=== PATIENT | male | born 1950 | race Caucasian/White ===

== ENCOUNTER → 2018-12-05 09:54 | Outpatient (CLI) | payer MEDICARE, MEDICAID | END | disposition home or self-care (01) | LOC: D.HCCARDIO 09:54 | DX: R07.9 Chest pain, unspecified (principal) ==

== ENCOUNTER → 2018-12-18 11:25 | Outpatient (CLI) | payer MEDICARE, MEDICAID ==
[~2018-12-18] VITALS: Ht 172.7 cm; Wt 62.7 kg
--- NOTE | ~2018-12-18 | HEMODYNAMI ---
PATIENT:ONDINA EWING MEDICAL RECORD: [id number] : 46 LOCATION:[facility] ADMISSION DATE: 12/18/18 Generatedon:12/18/201814:39 Patient name: ONDINA EWING Patient #: [id number] SSN: : 1950 Date of study: 12/18/2018 Page: Of Hemodynamic Procedure Report Patient Data Patient Demographics Procedure consent was obtained First Name: ONDINA Gender: Male Last Name: KAYLIN : 1950 Patient #: [id number] Age: 68 year(s) Race: Unknown Additional ID: [id number] Contact details [address]: [address] [place] [address] State: [place] City: [place] Zip code: [address] Past Medical History Allergies Allergen Reaction Date Comments Reported Sulfa drugs 12/18/2018 Admission Admission Data Admission Date: 12/18/2018 Admission Time: 11:25 Height (in.): 67 BSA: 1.78 (m2) Height (cm.): 170.18 BMI: 23.18 (kg/m2) Weight (lbs.): 148 Weight (kg.): 67.13 Lab Results Lab Result Date: 12/18/2018 Lab Result Time: 0:00 Biochemistry Name Units Result Min Max BUN mg/dl 22 --(----)-* 7 18 Creatinine mg/dl 1.9 --(----)-* 0.6 1.3 CBC Name Units Result Min Max Hemoglobin g/dl 14.8 --(-*--)-- 13.5 17.5 Procedure Procedure Types Cath Procedure Diagnostic Procedure LHC LH w/Coronaries Sedation Charges Moderate Sedation up to 15 minutes PCI Procedure Coronary Stent Coronary Stent Initial Procedure Description Procedure Date Procedure Date: 12/18/2018 Procedure Start Time: 14:19 Procedure End Time: 14:36 Procedure Staff Name Function Alex Leavitt MD Performing Physician Renea Rosenberg RT Monitor Dorothy Lorenzo RN Nurse Pina Gonzalez RT Scrub Procedure Data Cath Procedure Fluoroscopy Diagnostic fluoroscopy Total fluoroscopy Time: 3.4 time: 3.4 min min Diagnostic fluoroscopy Total fluoroscopy dose: 391 dose: 391 mGy mGy Contrast Material Contrast Material Type Amount (ml) Isovue 300 77 Entry Location Entry Primary Successful Side Size Upsize Upsize Entry Closure Mcclain ccessful Closure Location (Fr) 1 (Fr) 2 (Fr) Remarks Device Remarks Radial Right 6 Fr Mechanical artery Short Compression Estimated blood loss: 12 ml Diagnostic catheters Device Type Used For End Catheter Placement DIAGNOSTIC Freeport 110cm 5 Procedure Fr catheter ([id number]) Procedure Complications No complications Procedure Medications Medication Administration Route Dosage 0.9% NaCl I.V. 100 ml/hr Oxygen etCO2 Nasal cannula 2 l/min Lidocaine 2% added to field 20 Heparin Flush Bag added to field 2 bags (1000units/500ml NS) Radial Cocktail added to field 1 syringe (Verapomil 2mg/Nitro 400mcg/Heparin 1500units) Versed I.V. 2 mg Fentanyl I.V. 50 mcg Versed I.V. 1 mg Fentanyl I.V. 25 mcg Heparin Bolus I.V. 5000 units Integrilin (Bolus I.V. 5.6 ml 2mg/ml) Plavix P.O. 600 mg Hemodynamics Rest BSA: 1.78 (m2) HGB: 14.8 (g/dl) O2 Consumption: Estimated: 208.54 (ml/min) O2 Co nsumption indexed: Estimated:117.16 (ml/min/m) Heart Rate: 74 (bpm) Pressure Samples Time Site Value (mmHg) Purpose Heart Use Rate(bpm) 14:22 LV 100/9,13 EDP 73 Gradients Valve Time Site Site Mean SEP/DFP Peak To Heart Use 1 2 (mmHg) (sec/min) Peak Rate (mmHg) (bpm) Aortic 14:22 LV AO 87 Snapshots Pre Cath Intra NCS Post Cath Vital Signs Time Heart Resp SPO2 etCO2 NIBP (mmHg) Rhythm Pain Sedation Rate (ipm) (%) (mmHg) Status Level (bpm) 14:06:40 92 12 98 33.9 142/82(123) NSR 0 (11) 10(A) , No pain 14:10:56 86 12 99 30.1 128/77(108) NSR 0 (11) 10(A) , No pain 14:15:06 72 10 98 28.6 128/78(98) NSR 0 (11) 10(A) , No pain 14:19:17 75 13 97 29.3 125/74(109) NSR 0 (11) 10(A) , No pain 14:23:31 78 11 98 31.6 106/63(82) NSR 0 (11) 9(A) , No pain 14:27:35 82 10 97 32.4 117/71(96) NSR 0 (11) 9(A) , No pain 14:31:41 78 17 98 33.1 118/76(97) NSR 0 (11) 10(A) , No pain 14:35:51 76 12 93 32.4 121/69(92) NSR 0 (11) 10(A) , No pain Medications Time Medication Route Dose Verified Delivered Reason Not es Effectiveness by by 14:06:09 0.9% NaCl I.V. 100 Alex Dorothy used for ml/hr Norton Bj procedure MD RODRIGUEZ 14:06:16 Oxygen etCO2 2 l/min Alex Dorothy used for Nasal [facility] procedure cannula MD RODRIGUEZ 14:06:20 Lidocaine 2% added 20ml Alex Alex for local to vial Count Includes [facility] anesthetic field MD TOLENTINO 14:06:26 Heparin Flush added 2 bags Alex Victorory used for Bag to Count Includes [facility] procedure (1000units/500ml field MD TOLENTINO NS) 14:06:36 Radial Cocktail added 1 Alex Alex used for (Verapomil to syringe Count Includes [facility] procedure 2mg/Nitro field MD TOLENTINO 400mcg/Heparin 1500units) 14:17:35 Versed I.V. 2 mg Alex Dorothy for sedation St Alexis Lorenzo MD, RN 14:17:45 Fentanyl I.V. 50 mcg Alex Dorothy for sedation St Alexis Lorenzo MD, RN 14:22:10 Versed I.V. 1 mg Alex Dorothy for sedation St Alexis Lorenzo MD, RN 14:22:15 Fentanyl I.V. 25 mcg Alex Dorothy for sedation St Alexis Lorenzo MD, RN 14:26:40 Heparin Bolus I.V. 5000 Alex Dorothy for [place] ified units [facility] anticoagulation with Dr. MD RODRIGUEZ [place] 14:28:56 Integrilin I.V. 5.6 ml Alex Dorothy for was dhruv (Bolus 2mg/ml) St Alexis Lorenzo anticoagulation 4.4mL MD RODRIGUEZ 14:29:28 Plavix P.O. 600 mg Alex Norman antiplatelet RN therapy Procedure Log Time Note 13:46:36 Time tracking: Regular hours (M-F 7:00 - 5:00) 13:46:40 Plan of Care:Hemodynamics will remain stable., Cardiac rhythm will remain stable., Comfort level will be maintained., Respiratory function will remain adequate., Patient/ family verbilizes understanding of procedure., Procedure tolerated without complication., Recovers from procedure without complications.. 13:49:46 Dorothy Lorenzo RN sent for patient. Start room use. 13:50:58 Signed procedure consent form obtained from patient. 13:51:00 Diagnostic Cath status Elective 13:52:09 Patient Height : 67 inches 13:52:11 Patient Weight : 148 lbs 13:52:24 Patient allergic to Sulfa drugs 14:05:32 Patient received from Pre/Post Procedure Room to CCL 1 Alert and oriented. Tansferred to table in Supine position. 14:05:33 Warm blankets applied, and rolly hugger turned on for patient comfort. 14:05:33 Correct patient and procedure confirmed by team. 14:05:34 ECG and BP/O2 sat monitors applied to patient. 14:05:36 Vital chart was started 14:05:36 Full Disclosure recording started 14:06:09 0.9% NaCl 100 ml/hr I.V. was administered by Dorothy Lorenzo RN; used for procedure; 14:06:16 Oxygen 2 l/min etCO2 Nasal cannula was administered by Dorothy Lorenzo RN; used for procedure; 14:06:20 Lidocaine 2% 20ml vial added to field was administered by Alex Leavitt MD; for local anesthetic; 14:06:26 Heparin Flush Bag (1000units/500ml NS) 2 bags added to field was administered by Alex Leavitt MD; used for procedure; 14:06:36 Radial Cocktail (Verapomil 2mg/Nitro 400mcg/Heparin 1500units) 1 syringe added to field was administered by Alex Leavitt MD; used for procedure; 14:11:56 Baseline sample Acquired. 14:11:59 Rhythm: sinus rhythm 14:13:25 H&P Date Dictated: 11/30/2018 Within 30 days and on chart., H&P Addendum completed by physician on day of procedure. (MUST COMPLETE FOR ALL OUTPATIENTS). 14:13:26 Pre-procedure instructions explained to patient. 14:13:26 Pre-op teaching completed and patient verbalized understanding. 14:13:28 Family in patients room. 14:13:29 Patient NPO since Midnight. 14:13:31 Is patient on blood thinner?No 14:13:32 Patient diabetic? No. 14:13:36 Previous problem with sedation/anesthesia? No ? 14:13:37 Snore? No 14:13:38 Sleep apnea? No 14:13:39 Deviated septum? No 14:13:40 Opens mouth fully? Yes 14:13:41 Sticks out tongue? Yes 14:13:55 Airway obstruction? No ? 14:13:57 Dentures? No ? 14:14:01 Modified Santana's test Ulnar < 7 seconds 14:14:04 Patient pain scale 0/10 ?. 14:14:17 IV patent on arrival in left hand with 0.9% NaCl at [facility]. 14:14:59 Lab Result : BUN 22 mg/dl 14:14:59 Lab Result : Hemoglobin 14.8 g/dl 14:14:59 Lab Result : Creatinine 1.9 mg/dl 14:15:01 Lab results completed and on chart. 14:15:06 Right Radial & Right Groin area was prepped with chlora-prep and draped in sterile fashion 14:15:06 Alarms reviewed by R. N. 14:15:07 Sharps counted by scrub and verified by R.N. 14:15:09 Use device set Radial Dx or PCI 14:15:10 ACIST Syringe (01204) opened to sterile field. 14:15:11 Bag Decanter () opened to sterile field. 14:15:12 ACIST Hand Control (69577) opened to sterile field. 14:15:12 ACIST Manifold (20830) opened to sterile field. 14:15:13 Tegaderm 4 x 4 (1626W) opened to sterile field. 14:15:24 Medline Cath Pack ([id number]) opened to sterile field. 14:15:24 DIAGNOSTIC WIRE .035 260cm J wire (270707) opened to sterile field. 14:15:25 MBrace Wrist Support ([id number]) opened to sterile field. 14:15:26 SHEATH 6FR Slender (29-4840) opened to sterile field. 14:16:56 --------ALL STOP TIME OUT------ 14:16:57 Final Timeout: patient, procedure, and site verified with staff and physician. All members of the team are in agreement. 14:16:59 Right Radial & Right Groin site verified by team. 14:17:01 Physical assessment completed. ASA score P 2 - A patient with mild systemic disease as per Alex Leavitt MD. 14:17:06 Sedation plan: IV Moderate Sedation Medication:Versed, Fentanyl 14:17:35 Versed 2 mg I.V. was administered by Dorothy Lorenzo RN; for sedation; 14:17:45 Fentanyl 50 mcg I.V. was administered by Dorothy Lorenzo RN; for sedation; 14:19:08 Zero performed for pressure channel P1 14:19:38 Procedure started. 14:19:59 Local anesthetic to right radial artery with Lidocaine 2% by Alex Leavitt MD.INITIAL ACCESS ONLY 14:20:38 A 6 Fr Short sheath was inserted into the Right Radial artery 14:20:51 A DIAGNOSTIC [place] 110cm 5 Fr catheter (268778) was advanced over the wire and used for Procedure. 14:21:32 LV gram done using OROSCO 14:21:36 Injector settings: Ml/sec: 7, Volume: 15, 14:22:10 Versed 1 mg I.V. was administered by Dorothy Lorenzo RN; for sedation; 14:22:15 Fentanyl 25 mcg I.V. was administered by Dorothy Lorenzo RN; for sedation; 14:22:23 LV hemodynamics recorded. 14:22:39 EF : 55 % 14:23:47 LCA angiography performed. 14:25:27 RCA angiography performed. 14:25:29 Catheter exchanged over wire. 14:25:58 INFLATOR Merit BasixCompak (VU9263) opened to sterile field. 14:25:58 WHISPER 300cm guide wire ([id number]) opened to sterile field. 14:25:59 GUIDE 5FR EBU 3.5 catheter ([id number]) opened to sterile field. 14:26:30 6 Fr EBU 3.5 guide catheter was inserted over the wire 14::40 Heparin Bolus 5000 units I.V. was administered by Dorothy Lorenzo RN; for anticoagulation; verified with Dr. Lisa 14:28:30 WHISPER 300 wire advanced. 14:28:56 Integrilin (Bolus 2mg/ml) 5.6 ml I.V. was administered by Dorothy Lorenzo RN; for anticoagulation; wasted 4.4mL 14:29:28 Plavix 600 mg P.O. was administered by Dorothy Lorenzo RN; for antiplatelet therapy; 14:30:22 Wire advanced across lesion. 14:30:45 Place stent Inflation Number: 1 A LUISA OTW 3.5 x 18 stent ([id number]) was prepped and advanced across the Prox LAD. The stent was deployed at 14 [place] for 0:20 (min:sec). 14:31:28 Stent catheter was removed intact over wire. 14:31:29 Wire removed. 14:31:30 Guide catheter removed. 14:32:16 Procedure ended.(Physican Out) 14:32:37 TR BAND Standard ([id number]) opened to sterile field. 14:32:47 Sheath removed intact; hemostasis achieved with Mechanical Compression to the Right Radial artery. 14:33:00 Contrast amount:Isovue 300 77ml. 14:33:04 Fluoroscopy time 03.40 minutes. 14:33:15 Flurop Dose total: 391 14:33:15 Fluoroscopy dose: 391 mGy 14:33:27 TR band inflated with 10cc of air. 14:33:32 Post-procedure physical assessment completed. ASA score P 2 - A patient with mild systemic disease as per Alex Leavitt MD. 14:33:35 Post procedure rhythm: sinus rhythm 14:33:38 Estimated blood loss: 12 ml 14:33:39 Post procedure instruction explained to patient.Patient verbalizes understanding. 14:33:39 Patient needs reinforcement of post procedure teaching. 14:34:16 Procedure type changed to Cath procedure, Diagnostic procedure, LHC, LHC w/Coronaries, Sedation Charges, Moderate Sedation up to 15 minutes, PCI procedure, Coronary Stent, Coronary Stent Initial 14:36:07 Procedure and supply charges have been captured, reviewed, submitted and are correct. 14:36:26 Procedure Complication : No complications 14:36:28 Vital chart was stopped 14:36:30 See physician's report for complete and final results. 14:36:31 Report given to Pre/Post Procedure Room. 14:36:34 Patient transfered to Pre/Post Procedure Room with Bed. 14:36:36 Procedure ended. 14:36:36 Full Disclosure recording stopped 14:36:40 End room use (Document Last) Intervention Summary Intervention Notes Time ActionType Lesion and Equipment Action# Pressure Duration Attributes Used 14:30:45 Place stent Prox LAD LUISA OTW 3.5 1 14 00:20 x 18 stent ([id number]) Device Usage Item Name Manufacture Quantity Catalog Hospital Part Current Mini mal Lot# / Number Charge Number Stock Stock Serial# Code ACIST Syringe Acist 1 25097 051242 076613 219759 20 (69873) Medical Systems Inc Bag Decanter Microtek 1 2001S 996088 52803 949838 5 (2001S) Medical Inc. ACIST Hand Acist 1 84268 022924 718362 707945 5 Control Medical (88029) Systems Inc ACIST Acist 1 34526 677381 458033 257517 5 Manifold Medical (04911) Systems Inc Tegaderm 4 x 3M 1 1626W 590658 198115 372713 5 4 (1626W) Medline Cath Medline 1 [id number] 560364 23134 823812 5 Pack ([id number]) DIAGNOSTIC St Jax 1 384687 830661 820290 279107 30 WIRE .035 260cm J wire (023330) MBrace Wrist Advanced 1 140-0250-00 014505 09466 691609 5 Support Vascular (989843913) Dynamics SHEATH 6FR Terumo 1 [id number] 784864 995052 093987 5 Slender (80-1060) DIAGNOSTIC Terumo 1 40-5823 253195 354195 132730 5 Freeport 110cm 5 Fr catheter (748820) INFLATOR [employer] 1 CM2310 865981 426421 775118 15 [facility] Medical BasixCompak (LG7830) WHISPER 300cm Aguilera 1 [id number] 171597 550768 676518 5 guide wire Vascular ([id number]) GUIDE 5FR EBU Medtronic 1 [id number] 297171 342532 016311 1 3.5 catheter (CR6WNW92) LUISA OTW 3.5 Medtronic 1 [id number] 727382 2090888 155734 5 [id number] x 18 stent ([id number]) TR BAND Terumo 1 [id number] 332603 604375 984495 40 Standard ([id number]) Signature Audit [place] Stage Time Signature Unsigned Intra-Procedure 12/18/2018 Renea Rosenberg 2:39:48 PM RT(R) Signatures Monitor : Renea Rosenberg Signature : RT Date : Time : [place] [id number] [place] [address]
[~2018-12-18 11:25] MED LIST: BAYER CHEWABLE81 MG PO; GEMFIBROZIL600 MG PO; ISENTRESS400 MG PO; NORVASC10 MG PO; NORVIR100 MG PO; PLAVIX75 MG PO; PREZISTA600 MG PO; TRUVADA 200 MG1 EACH PO; ZOVIRAX400 MG PO
[2018-12-18 12:19] VITALS: BP 157/85; Ht 172.7 cm; Wt 62.7 kg
[2018-12-18 12:20] LABS: BASOPHILS 1.3 % (0-2); EOSINOPHILS 5.9 % (0-7); HEMATOCRIT 41.8 % (42.0-54.0); HEMOGLOBIN 14.8 g/dL (13.5-17.5); IMMATURE GRANULOCYTES 0.3 % (0-5); LYMPHOCYTES 39.4 % (15-50); MCH 34.3 pg (26.0-34.0); MCHC 35.4 g/dL (31.0-37.0); MEAN PLATELET VOLUME 9.6 fL (7.4-10.4); MONOCYTES 10.8 % (2-11); NEUTROPHILS 42.3 % (40-80); PLATELET COUNT 206 10x3/uL (130-400); RBC 4.31 10x6/uL (4.20-6.10); RDW 11.9 % (11.5-14.5); WBC 7.9 10x3/uL (4.8-10.8)
[2018-12-18 12:40] LABS: ANION GAP 15.9 mmol/L (8-16); CALCIUM 9.1 mg/dL (8.5-10.1); CARBON DIOXIDE 23.3 mmol/L (21.0-32.0); CREATININE - SERUM 1.9 mg/dL (0.6-1.3); POTASSIUM - SERUM 3.2 mmol/L (3.5-5.1)
--- NOTE | 2018-12-18 14:45 | NUR ---
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 PATIENT CONNECTED TO MONITOR FOR OBSERVATION WITH HR 78 CHEST PAIN DENIED BP 115/65 NO DISTRESS
--- NOTE | 2018-12-18 15:04 | NUR ---
VSS WITH NO DISTRESS NOTED. TR BAND REMAINS CDI WITH NO BLEEDING OR HEMATOMA NOTED.
--- NOTE | 2018-12-18 15:24 | NUR ---
PATIENT RESTING QUIETLY WITH NO DISTRESS TR BAND TO R/WRIST IS INTACT AND CDI NO BLEEDING NOTED.
--- NOTE | 2018-12-18 15:44 | NUR ---
TR BAND TO R/WRIST IS CDI WITH CHEST PAIN DENIED. CALL LIGHT IS IN REACH NO DISTRESS NOTED
--- NOTE | 2018-12-18 15:54 | NUR ---
REPOSITIONED TO SITTING WITH HOB UP 30 DEGREES FOR COMFORT. SANDWICH AND SODA TO BEDSIDE. PATIENT DENIED CHEST PAIN
--- NOTE | 2018-12-18 16:04 | NUR ---
PATIENT VOIDS TO COLLECTION
--- NOTE | 2018-12-18 16:25 | NUR ---
PATIENT TOLERATING SANDWICH AND SODA WITH NAUSEA DENIED. TR BAND REMAINS CDI WITH NO BLEEDING OR HEMATOMA NOTED.
--- NOTE | 2018-12-18 17:04 | NUR ---
VISITING WITH FAMILY PRESENT AT BEDSIDE NEEDS DENIED
--- NOTE | 2018-12-18 17:25 | NUR ---
2 CC AIR REMOVED FROM TR BAND WITH NO BLEEDING OR HEMATOMA NOTED.
--- NOTE | 2018-12-18 17:36 | NUR ---
2 CC AIR REMOVED FROM TR BAND WITH NO BLEEDING NOTED
--- NOTE | 2018-12-18 17:59 | NUR ---
4 CC AIR REMOVED FROM TR BAND WITH NO BLEEDING OR HEMATOMA NOTED. PIV REMOVED WITH DRESSING APPLIED. PATIENT UP TO GET DRESSED FOR DISCHARGE HOME
--- NOTE | 2018-12-18 18:26 | NUR ---
VERBAL AND WRITTEN DISCHARGE GONE OVER WITH PATIENT. TR BAND REMOVED WITH DRESSING APPLIED. PATIENT LEFT VIA WC TO PARKING FOR TRANSPORT HOME CHEST PAIN DENIED NO DISTRESS
--- NOTE | 2018-12-30 12:54 | OP ---
PATIENT NAME: ONDINA EWING MEDICAL RECORD: [id number] :46 LOCATION:D.CAT ADMISSION DATE: SURGEON: PADMINI RAMOS MD DATE OF OPERATION: 12/18/2018 PROCEDURE: Left heart catheterization, selective coronary angiography, right radial approach. CATHETERS: [place] catheter and radial sheath. The procedure was well tolerated. We proceeded with PTCA and stenting of LAD. FINDINGS: Left ventriculography in 30-degree OROSCO view; normal wall motion and normal systolic function. CORONARY ANATOMY: LEFT MAIN: Left main is free of disease. 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 There is 90% in the septal auto body service mechanic itself. CIRCUMFLEX: Free of disease. RIGHT CORONARY ARTERY: Rudimentary and free of disease. PLAN: Intervention momentarily. DESCRIPTION OF PROCEDURE: Using the indwelling radial sheath, EBU 3.5 guiding catheter provided good guide catheter support followed by 300-cm Whisper wire was placed across the occluded LAD down this portion of the vessel. Primary stent deployed was a 3.5 x 18-mm [place] drug-eluting stent up to 14 atmospheres. Final angiography showed excellent resolution of an 80% complex stenosis in the LAD with no significant residual. Septum remained open. NANI flow was 3 throughout the procedure. Integrilin was used during the case. Plavix was loaded in the lab. Sheath was closed with TR band. TRANSINT:[id number] Voice Confirmation ID: [id number] DOCUMENT ID: [id number] PADMINI RAMOS MD at 1254 CC: [id number] DICTATION DATE: 12/18/18 1439 EQUIPMENT MONITOR PHOTOTYPESETTING: 12/18/18 1648 DEP CLI 12/18/18 [facility] [address] [place] [id number]
== END | disposition home or self-care (01) ==
LOC: D.CATH 11:25
PROVIDERS: Internal Medicine Interventional Cardiology
DX: I25.110 Atherosclerotic heart disease of native coronary artery with unstable angina pectoris (principal)
CPT/HCPCS: C9600; 93458

== ENCOUNTER → 2019-07-10 09:56 | Outpatient (CLI) | payer MEDICARE, MEDICAID ==
[2018-12-18 12:19] VITALS: BMI 21.0
--- NOTE | 2019-07-15 09:24 | EC ---
PATIENT:ONDINA EWING DATE OF SERVICE: 07/10/19 SEX: M MEDICAL RECORD: [id number] DATE OF : [birth year] [facility]GE [facility] PAT[facility]: 69 ADMISSION DATE: 07/10/19 REFERRING PHYSICIAN: INTERPRETING PHYSICIAN: PADMINI RAMOS MD ECHOCARDIOGRAM REPORT ECHO CHARGES 4 ECHO COMPLETE Date: 07/10/19 CLINICAL DIAGNOSIS: CAD/HTN ECHOCARDIOGRAPHIC MEASUREMENTS (adult normal given) AC root (d.<3.7cm) 4.0 cm LV Septum d (<1.2 cm> 1.0 cm Valve Excursion 1.8 cm LV Septum (systole) 1.2 cm Left Atria (s.<4.0cm> 2.8 cm LVPW d(<1.2cm) 1.1 cm RV (d.<2.3cm) 2.7 cm LVPW (sytole) 1.2 cm LV diastole(<5.6CM) 4.3 cm MV E-F(>70mm/sec) cm LV systole 3.1 cm LVOT Diameter 1.8 cm MV exc.(>10mm) 1.2 cm Est.ejection fraction (50-75%) % DOPPLER: LVIT cm/sec A 90.0 cm/sec E 48.0 cm/sec LA cm/sec RVSP 31 mmHg LVOT 84 cm/sec AOP1/2T m/s Asc. Ao 105 cm/sec RVOT 95 cm/sec RA cm/sec PA 95 cm/sec AV Gradient Peak 4.42 mmHg AV Mean 2.26 mmHg AV Area 2.1 cm MV Gradient Peak 4.15 mmHg MV Mean 1.41 mmHg MV Area cm COMMENTS: Clinical Education Assistant: 2 NORA SPEAR Plant Taxonomist: 3 Dr. Lisa TAPE# PACS Pericardial Effusion N DATE OF SERVICE: Adequate 2D, color flow, spectral Doppler, and M-mode. LVH is present. LV internal dimensions are normal. Wall motion is normal. EF is greater than or equal to 55%. Aortic valve sclerosis without stenosis by Doppler interrogation. Left atrium is normal at 3.8 cm. Mitral valve shows no prolapse. Trace MR. Right-sided chambers grossly normal. Trace TR. TRANSINT:[id number] Voice Confirmation ID: [id number] DOCUMENT ID: [id number] ECHOCARDIOGRAM REPORT [id number] ONDINA EWING 3RD PADMINI RAMOS MD at 0924 CC: [id number] DICTATION DATE: 07/11/19 1045 PSYCHIATRIC NURSE: 07/11/19 1236 DEP CLI 07/10/19 [facility] [address] [place] [address]
== END | disposition home or self-care (01) ==
LOC: D.HCCARDIO 09:56
PROVIDERS: ATTEND Internal Medicine Interventional Cardiology
DX: I25.10 Atherosclerotic heart disease of native coronary artery without angina pectoris (principal)

== ENCOUNTER 2020-01-27 10:40 | Observation (INO) | payer MEDICARE ==
[~2020-01-27] VITALS: Ht 172.7 cm; Wt 67.0 kg
--- NOTE | ~2020-01-27 | HEMODYNAMI ---
PATIENT:ONDINA EWING 3RD MEDICAL RECORD: [id number] : 46 LOCATION:[address]# [id number] ADMISSION DATE: 01/27/20 Generatedon:01/28/202015:22 Patient name: ONDINA EWING Patient #: [id number] SSN: [id number] : 1950 Date of study: 01/28/2020 Page: Of Hemodynamic Procedure Report Patient Data Patient Demographics Procedure consent was obtained First Name: ONDINA Gender: Male Last Name: KAYLIN Suffix: III Middle Initial: Renetta WILKES : 1950 Patient #: [id number] Age: 69 year(s) Race: Unknown SSN: [id number] Additional ID: [id number] Contact details [address]: [address] [place] [address] State: [place] City: [place] Zip code: [address] Past Medical History History of disease Date Diagnosis Comments CAD Allergies Allergen Reaction Date Comments Reported Sulfa drugs 12/18/2018 Other allergy 01/21/2020 BENADRYL, SULFA Other allergy 01/28/2020 benedryl. sulfa Admission Admission Data Admission Date: 01/27/2020 Admission Time: 13:05 Arrival Date: 01/28/2020 Arrival Time: 0:00 Admit Source: Other Insurance Payor: Medicare, Room #: D.2122 Medicaid HIC #: [id number] Height (in.): 67.72 BSA: 1.79 (m2) Height (cm.): 172 BMI: 22.65 (kg/m2) Weight (lbs.): 147.71 Weight (kg.): 67 Procedure Procedure Types Cath Procedure Diagnostic Procedure LHC LHC w/Coronaries Sedation Charges Moderate Sedation up to 15 minutes Procedure Description Procedure Date Procedure Date: 01/28/2020 Procedure Start Time: 15:02 Procedure End Time: 15:20 Procedure Staff Name Function Ralph Cobian MD Performing Physician Enma Rader RT Monitor Dorothy Lorenzo RN Nurse Ирина Maya RT Scrub Indication Chest pain Procedure Data Cath Procedure Fluoroscopy Diagnostic fluoroscopy Total fluoroscopy Time: time: 2.63 min 2.63 min Diagnostic fluoroscopy Total fluoroscopy dose: 442 dose: 442 mGy mGy Contrast Material Contrast Material Type Amount (ml) Isovue 300 68 Entry Location Entry Primary Successful Side Size Upsize Upsize Entry Closure Succes sful Closure Location (Fr) 1 (Fr) 2 (Fr) Remarks Device Remarks Femoral Left 5 Fr Exoseal artery Estimated blood loss: 10 ml Diagnostic catheters Device Type Used For End Catheter Placement MULTIPACK JL 4.0 5Fr Procedure catheter MULTIPACK 3DRC 5Fr Procedure catheter MULTIPACK Pigtail 5 Fr Ventriculography catheter Procedure Complications No complications Procedure Medications Medication Administration Route Dosage 0.9% NaCl I.V. 100 ml/hr Oxygen etCO2 Nasal cannula 2 l/min Lidocaine 2% added to field 20 Heparin Flush Bag added to field 2 bags (1000units/500ml NS) Versed I.V. 2 mg Fentanyl I.V. 50 mcg Versed I.V. 2 mg Fentanyl I.V. 50 mcg Hemodynamics Rest BSA: 1.79 (m2) O2 Consumption: Estimated: 224.88 (ml/min) O2 Consumption indexed : Estimated:125.63 (ml/min/m) Heart Rate: 97 (bpm) Pressure Samples Time Site Value (mmHg) Purpose Heart Use Rate(bpm) 15:16 LV 124/-4,11 Snapshot 97 Gradients Valve Time Site Site Mean SEP/DFP Peak To Heart Use 1 2 (mmHg) (sec/min) Peak Rate (mmHg) (bpm) Aortic 15:17 LV AO 98 Snapshots Pre Cath Intra NCS Post Cath Vital Signs Time Heart Resp SPO2 etCO2 NIBP (mmHg) Rhythm Pain Sedation Rate (ipm) (%) (mmHg) Status Level (bpm) 14:45:49 91 13 97 28.9 150/91(115) NSR 0 (11) 10(A) , No pain 14:50:05 86 12 96 29.7 143/84(115) NSR 0 (11) 10(A) , No pain 14:54:21 86 11 98 26.7 139/74(87) NSR 0 (11) 10(A) , No pain 14:58:33 87 11 97 17.8 135/79(104) NSR 0 (11) 10(A) , No pain 15:02:47 83 13 96 29.7 132/72(94) NSR 0 (11) 10(A) , No pain 15:06:55 88 13 97 35.6 132/88(107) NSR 0 (11) 10(A) , No pain 15:11:02 96 13 97 25.2 139/85(117) NSR 0 (11) 9(A) , No pain 15:15:12 94 12 98 34.2 128/83(106) NSR 0 (11) 9(A) , No pain 15:19:20 93 10 98 32.6 130/79(104) NSR 0 (11) 10(A) , No pain Medications Time Medication Route Dose Verified Delivered Reason Notes Eff ectiveness by by 14:44:49 0.9% NaCl I.V. 100 Ralph Dorothy used for ml/hr Mango Lorenzo procedures rn 14:44:58 Oxygen etCO2 2 Ralph Dorothy used for Nasal l/min Mango Lorenzo procedure cannula RN 14:45:04 Lidocaine 2% added 20ml Ralph Ralph for local to vial Mango Cobian MD anesthetic field 14:45:09 Heparin Flush added 2 Ralph Ralph used for Bag to bags Mango Cobian MD procedure (1000units/500ml field NS) 15:02:20 Versed I.V. 2 mg Ralph Dorothy for Mango Lorenzo sedation RN 15:02:25 Fentanyl I.V. 50 Ralph Dorothy for mcg Mango Lorenzo sedation RN 15:07:29 Versed I.V. 2 mg Ralph Dorothy for Mango Lorenzo sedation RN 15:07:38 Fentanyl I.V. 50 Ralph Dorothy for mcg Mango Lorenzo sedation improvement specialist Log Time Note 14:27:20 Arrival Date: 01/28/2020 12:00:00 AM 14:27:44 Admit Source: Other 14:27:49 Insurance Payor : Medicare, Medicaid 14:27:57 Patient Height : 67.72 inches 14:28:00 Patient Weight : 147.71 lbs 14:28:30 Indication : Chest pain 14:28:43 Procedure Status Urgent Heart Cath (IP). 14:28:45 Dorothy Lorenzo RN sent for patient. Start room use. 14:28:46 Time tracking: Regular hours (M-F 7:00 - 5:00) 14:28:50 Plan of Care:Hemodynamics will remain stable., Cardiac rhythm will remain stable., Comfort level will be maintained., Respiratory function will remain adequate., Patient/ family verbilizes understanding of procedure., Procedure tolerated without complication., Recovers from procedure without complications.. 14:29:26 3b) 30-44 Moderately reduced kidney function. 14:29:29 Maximum allowable contrast dose (3.7 X eGFR X 0.75)111 ml. 14:39:45 Patient received from Med II to CCL 2 Alert and oriented. Tansferred to table in Supine position. 14:39:48 Signed procedure consent form obtained from patient. 14:39:49 Warm blankets applied, and rolly hugger turned on for patient comfort. 14:39:49 Correct patient and procedure confirmed by team. 14:39:50 ECG and BP/O2 sat monitors applied to patient. 14:44:06 H&P Date Dictated: 01/27/2020 Within 30 days and on chart., H&P Addendum completed by physician on day of procedure. (MUST COMPLETE FOR ALL OUTPATIENTS). 14:44:08 Pre-procedure instructions explained to patient. 14:44:10 Pre-op teaching completed and patient verbalized understanding. 14:44:12 Family in patients room. 14:44:14 Patient NPO since Midnight. 14:44:29 Patient allergic to Other allergybenedryl. sulfa 14:44:32 Is the patient allergic to Iodine/contrast media? No. 14:44:33 Was the patient premedicated? Yes 14:44:35 Is patient on blood thinner?Yes 14:44:37 Patient diabetic? No. 14:44:41 Snore? Yes 14:44:42 Vital chart was started 14:44:43 Sleep apnea? No 14:44:49 0.9% NaCl 100 ml/hr I.V. was administered by Dorothy Lorenzo RN; used for procedure; Verbal order read back and verified. 14:44:52 Patient pain scale 0/10 ?. 14:44:58 Oxygen 2 l/min etCO2 Nasal cannula was administered by Dorothy Lorenzo RN; used for procedure; Verbal order read back and verified. 14:45:01 IV patent on arrival in right hand with 0.9% NaCl at [facility]. 14:45:04 Lidocaine 2% 20ml vial added to field was administered by Ralph Cobian MD; for local anesthetic; Verbal order read back and verified. 14:45:05 Lab results completed and on chart. 14:45:09 Heparin Flush Bag (1000units/500ml NS) 2 bags added to field was administered by Ralph Cobian MD; used for procedure; Verbal order read back and verified. 14:45:10 Right groin area was prepped with chlora-prep and draped in sterile fashion 14:45:11 Alarms reviewed by R. N. 14:45:12 Sharps counted by scrub and verified by R.N. 14:45:16 Physician paged 14:46:20 Use device set Femoral Dx 14:46:21 ACIST Syringe (97964) opened to sterile field. 14:46:22 Bag Decanter (2002S) opened to sterile field. 14:46:22 Medline Cath Pack ([id number]) opened to sterile field. 14:46:23 ACIST Hand Control (19811) opened to sterile field. 14:46:24 ACIST Manifold (23286) opened to sterile field. 14:46:25 DIAGNOSTIC Multipack 5Fr catheter set ([id number]) opened to sterile field. 14:46:26 Tegaderm 4 x 4 (1626W) opened to sterile field. 14:46:27 SHEATH 5FR [place] (HUG196) opened to sterile field. 14:46:29 EMERALD Guide Wire (354-295) opened to sterile field. 15:00:03 --------ALL STOP TIME OUT------ 15:00:04 Final Timeout: patient, procedure, and site verified with staff and physician. All members of the team are in agreement. 15:00:09 Left groin site verified by team. 15:00:21 Fire Safety Assessment: A--An alcohol-based skin anteseptic being used preoperatively., C--Open oxygen or nitrous oxide is being used., D--An ESU, laser, or fiber-optic light is being used. 15:00:25 Physical assessment completed. ASA score P 2 - A patient with mild systemic disease as per Ralph Cobian MD. 15:00:28 Sedation plan: IV Moderate Sedation Medication:Versed, Fentanyl 15::29 Procedure started. :: Full Disclosure recording started 15:02:20 Versed 2 mg I.V. was administered by Dorothy Lorenzo RN; for sedation; Verbal order read back and verified. 15::23 Left groin site verified by team. 15::25 Fentanyl 50 mcg I.V. was administered by Dorothy Lorenzo RN; for sedation; Verbal order read back and verified. 15:02:35 Local anesthetic to left femerol artery with Lidocaine 2% by Ralph Cobian MD.INITIAL ACCESS ONLY 15:02:53 A 5 Fr sheath was inserted into the Left Femoral artery 15:04:53 A MULTIPACK JL 4.0 5Fr catheter was advanced over the wire and used for Procedure. 15:05:15 LCA angiography performed. 15::29 Versed 2 mg I.V. was administered by Dorothy Lorenzo RN; for sedation; Verbal order read back and verified. 15::38 Fentanyl 50 mcg I.V. was administered by Dorothy Lorenzo RN; for sedation; Verbal order read back and verified. 15:08:15 Catheter removed. 15:08:26 A MULTIPACK 3DRC 5Fr catheter was advanced over the wire and used for Procedure. 15:09:04 RCA angiography performed. 15:16:15 Catheter removed. 15:16:26 A MULTIPACK Pigtail 5 Fr catheter was advanced over the wire and used for Ventriculography. 15:16:57 EF : 55 % 15:17:11 LV hemodynamics recorded. 15:17:11 Catheter removed. 15:17:24 Sheath removed intact; hemostasis achieved with Exoseal to the Left Femoral artery. 15:17:26 Procedure ended.(Physican Out) 15:17:44 Fluoroscopy time 02.63 minutes. 15:17:54 Fluoroscopy dose: 442 mGy 15:17:54 Flurop Dose total: 442 15:18:00 Dose Area Product 30634 mGy/cm. 15:18:06 Contrast amount:Isovue 300 68ml. 15:18:12 Maximum allowable dose exceeded? No. 15:18:15 Insertion/operative site no bleeding no hematoma. 15:18:18 Post-op/insertion site Right Femoral artery dressed using a 4 x 4 and Tegaderm. 15:18:39 Post-procedure physical assessment completed. ASA score P 2 - A patient with mild systemic disease as per Ralph Cobian MD. 15:18:45 Post procedure rhythm: unchanged. 15:18:51 Estimated blood loss: 10 ml 15:18:53 Post procedure instruction explained to patient.Patient verbalizes understanding. 15:19:04 Procedure type changed to Cath procedure, Diagnostic procedure, LHC, LHC w/Coronaries, Sedation Charges, Moderate Sedation up to 15 minutes 15:19:06 Procedure and supply charges have been captured, reviewed, submitted and are correct. 15:19:37 Procedure Complication : No complications 15:19:39 Vital chart was stopped 15:19:41 [facility] Findings: mild to moderate CAD (<70%) 15:19:51 Report given to Med II. 15:19:59 Patient transfered to Med II with Bed. 15:20:01 Procedure ended. 15:20:01 Full Disclosure recording stopped 15:20:06 End room use (Document Last) 15:20:41 End room use (Document Last) 15:21:13 End room use (Document Last) Device Usage Item Name Manufacture Quantity Catalog Hospital Part Current Minimal L ot# / Number Charge Number Stock Stock Serial# Code ACIST Acist 1 00968 574952 351653 538134 20 Syringe Medical (80712) Systems Inc Bag Microtek 1 423721 63193 554334 5 Decanter Medical Inc. () Medline Medline 1 [id number] 668796 14599 729754 5 Cath Pack ([id number]) ACIST Hand Acist 1 82486 961456 623922 873045 5 Control Medical (34263) Systems Inc ACIST Acist 1 08717 455839 077806 613459 5 Manifold Medical (07422) Systems Inc DIAGNOSTIC Cardinal 1 OH2852 735812 62523 598740 30 Multipack Health 5Fr catheter set (IH8800) Tegaderm 4 3M 1 1626W 780177 023564 582092 5 x 4 (1626W) SHEATH 5FR Terumo 1 BGS996 994609 499083 211649 5 [place] (ZZF004) EMERALD Cardinal 1 502-455 603758 485991 243398 5 Guide Wire Health (502455) MULTIPACK Cardinal 1 758905 5 JL 4.0 5Fr Health catheter MULTIPACK Cardinal 1 958331 5 3DRC 5Fr Health catheter MULTIPACK Cardinal 1 000793 5 Pigtail 5 Health Fr catheter Signature Audit [place] Stage Time Signature Unsigned Intra-Procedure 01/28/2020 Enma Rader 3:20:41 PM RT(R) Intra-Procedure 01/28/2020 Ralph Cobian MD 3:21:13 PM Intra-Procedure 01/28/2020 Dorothy Lorenzo 3:21:59 PM RN Signatures Performing Physician : Signature : Ralph Cobian MD Date : Time : Monitor : Enma Rader Signature : RT Date : Time : Nurse : Dorothy Lorenzo RN Signature : Date : [address] : [address] [facility] [address]
[2020-01-27 11:14] LABS: BASOPHILS 1.5 % (0-2); EOSINOPHILS 10.9 % (0-7); HEMATOCRIT 42.4 % (42.0-54.0); HEMOGLOBIN 14.5 g/dL (13.5-17.5); IMMATURE GRANULOCYTES 0.2 % (0-5); LYMPHOCYTES 39.1 % (15-50); MCH 32.9 pg (26.0-34.0); MCHC 34.2 g/dL (31.0-37.0); MCV 96.1 fL (80.0-100.0); MEAN PLATELET VOLUME 9.4 fL (7.4-10.4); MONOCYTES 10.9 % (2-11); NEUTROPHILS 37.4 % (40-80); PLATELET COUNT 216 10x3/uL (130-400); RBC 4.41 10x6/uL (4.20-6.10); RDW 11.7 % (11.5-14.5); WBC 6.5 10x3/uL (4.8-10.8)
[2020-01-27 11:26] LABS: CALC OSMOLALITY 277 mosm/kg (275-300); CALCIUM 9.5 mg/dL (8.5-10.1); CARBON DIOXIDE 24.6 mmol/L (21.0-32.0); CHLORIDE - SERUM 102 mmol/L (98-107); CREATININE - SERUM 1.7 mg/dL (0.6-1.3); GLUCOSE 141 mg/dL (74-106); POTASSIUM - SERUM 3.8 mmol/L (3.5-5.1); SODIUM 137 mmol/L (136-145); UREA NITROGEN 19 mg/dL (7-18); eGFR NON AFRICAN AMERICAN 42 mL/min (90-120)
[2020-01-27 11:34] LABS: APTT 31.5 SECONDS (22.8-39.4); INR 0.99 (0.85-1.17)
[2020-01-27 11:40] LABS: ALBUMIN 4.1 g/dL (3.4-5.0); ALKALINE PHOSPHATASE 27 U/L (30-120); ALT (SGPT) 34 U/L (10-68); BILIRUBIN - TOTAL 0.48 mg/dL (0.2-1.3); CKMB 2.8 U/L (0.0-3.6); CREATINE KINASE 160 UL (21-232); MAGNESIUM - SERUM 2.5 mg/dL (1.8-2.4); PROTEIN - SERUM 8.5 g/dL (6.4-8.2)
[2020-01-27 11:44] LABS: TROPONIN-I 0.017 ng/mL (0.000-0.060)
[2020-01-27 12:57] VITALS: BP 121/73
[2020-01-27 13:56] LABS: CKMB 2.2 U/L (0.0-3.6); CREATINE KINASE 146 UL (21-232); TROPONIN-I 0.019 ng/mL (0.000-0.060)
[2020-01-27 14:28] VITALS: BP 136/79; Ht 172.7 cm; Wt 67.0 kg
[2020-01-27 15:55] VITALS: BP 136/79
[2020-01-27 16:36] LABS: BILIRUBIN NEGATIVE (NEGATIVE); GLUCOSE NEGATIVE (NEGATIVE); KETONE NEGATIVE (NEGATIVE); NITRITE NEGATIVE (NEGATIVE); SPECIFIC GRAVITY 1.025 (1.005-1.020); UROBILINOGEN NORMAL (NORMAL)
[2020-01-27 16:38] LABS: BACTERIA FEW /hpf (NEGATIVE); GRANULAR CAST OCC /lpf (NONE SEEN); RED CELLS - URINE 0-5 /hpf (0-5); WHITE CELLS - URINE 0-5 /hpf (NEGATIVE)
[2020-01-27 19:43] LABS: BASOPHILS 1.6 % (0-2); EOSINOPHILS 9.5 % (0-7); HEMATOCRIT 36.8 % (42.0-54.0); HEMOGLOBIN 12.6 g/dL (13.5-17.5); IMMATURE GRANULOCYTES 0.2 % (0-5); MCH 32.7 pg (26.0-34.0); MCHC 34.2 g/dL (31.0-37.0); MCV 95.6 fL (80.0-100.0); MEAN PLATELET VOLUME 8.9 fL (7.4-10.4); MONOCYTES 10.4 % (2-11); NEUTROPHILS 43.3 % (40-80); PLATELET COUNT 201 10x3/uL (130-400); RBC 3.85 10x6/uL (4.20-6.10); RDW 11.7 % (11.5-14.5); WBC 6.2 10x3/uL (4.8-10.8)
[2020-01-27 20:00] VITALS: BP 121/68
[2020-01-27 20:01] LABS: ANION GAP 13.1 mmol/L (8-16); CALCIUM 8.9 mg/dL (8.5-10.1); CARBON DIOXIDE 26.5 mmol/L (21.0-32.0); CHOL - HDL RATIO 6.5 ratio (2.3-4.9); CREATININE - SERUM 1.8 mg/dL (0.6-1.3); LDL-HDL RATIO 3.3 ratio (1.5-3.5); POTASSIUM - SERUM 3.6 mmol/L (3.5-5.1)
[2020-01-27 20:05] LABS: CKMB 1.9 U/L (0.0-3.6); CREATINE KINASE 115 UL (21-232); TROPONIN-I 0.025 ng/mL (0.000-0.060)
--- NOTE | 2020-01-27 20:32 | NUR ---
INITIAL ROUNDS COMPLETED AT 0 HRS. PT DENIED ANY DISCOMFORT. ASSESSMENT COMPLETED AT 1954 HRS. SR PER CM HR 91. ALERT AND ORIENTED TO PERSON, PLACE AND TIME. EMMANUEL. IV TO RFA WITH NS AT 75CC/HR. IV PATENT. LUNGS DIMINISHED IN BASES BILAT. EMMANUEL. INSTRUCTED ON USE OF BED CONTROLS. SR UP X1, CALL LIGHT WITHIN REACH.
[2020-01-27] MEDS ORDERED: BIKTARVY 50-201 EACH PO (20:55)
[2020-01-27] MEDS ORDERED: FLOMAX0.4 MG PO (21:10)
--- NOTE | 2020-01-27 22:48 | NUR ---
PT AWAKE; DENIES ANY DISCOMFORT. SR UP X2, CALL LIGHT WITHIN REACH.
[2020-01-28] VITALS: BP 121/64
--- NOTE | 2020-01-28 01:10 | NUR ---
EKG DONE. PT DENIES ANY DISCOMFORT. SR UP X2, CALL LIGHT WITHIN REACH.
[2020-01-28 01:46] LABS: CKMB 1.5 U/L (0.0-3.6); CREATINE KINASE 110 UL (21-232); TROPONIN-I 0.032 ng/mL (0.000-0.060)
[2020-01-28 04:00] VITALS: BP 132/70
--- NOTE | 2020-01-28 04:47 | NUR ---
PT WATCHING TV. NO DISTRESS NOTED. CALL LIGHT WITHIN REACH.
[2020-01-28 04:55] LABS: BASOPHILS 1.5 % (0-2); EOSINOPHILS 9.8 % (0-7); HEMATOCRIT 37.9 % (42.0-54.0); HEMOGLOBIN 12.9 g/dL (13.5-17.5); IMMATURE GRANULOCYTES 0.1 % (0-5); LYMPHOCYTES 29.8 % (15-50); MCH 32.6 pg (26.0-34.0); MCV 95.7 fL (80.0-100.0); MEAN PLATELET VOLUME 9.4 fL (7.4-10.4); MONOCYTES 9.6 % (2-11); NEUTROPHILS 49.2 % (40-80); PLATELET COUNT 220 10x3/uL (130-400); RBC 3.96 10x6/uL (4.20-6.10); RDW 11.6 % (11.5-14.5); WBC 7.3 10x3/uL (4.8-10.8)
[2020-01-28 05:17] LABS: ALBUMIN 3.5 g/dL (3.4-5.0); ANION GAP 13.8 mmol/L (8-16); BILIRUBIN - TOTAL 0.38 mg/dL (0.2-1.3); CALCIUM 8.5 mg/dL (8.5-10.1); CREATININE - SERUM 1.8 mg/dL (0.6-1.3); POTASSIUM - SERUM 3.8 mmol/L (3.5-5.1); PROTEIN - SERUM 7.3 g/dL (6.4-8.2)
--- NOTE | 2020-01-28 06:49 | NUR ---
VSS THROUGHOUT NIGHT. SR PER CM. PT DENIED ANY DISCOMFORT. NEEDS MET; WILL CONTINUE TO MONITOR.
[2020-01-28 08:43] VITALS: BP 134/78
[2020-01-28 12:16] VITALS: BP 127/78
--- NOTE | 2020-01-28 13:20 | NUR ---
PT RESTING COMFORTABLY IN BED, DENIES ANY NEEDS AT THIS TIME. CALL LIGHT IN REACH, FAMILY AT BEDSIDE, VITALIY SANDERS, WILL CONTINUE TO MONITOR.
--- NOTE | 2020-01-28 14:21 | NUR ---
PRE-OP MEDS GIVEN , PT ALLERGIC TO BENADRYL ORDER DOSE NOT GIVEN.
--- NOTE | 2020-01-28 14:52 | NUR ---
PT TO HYDROGRAPHY TEACHER.
--- NOTE | 2020-01-28 15:46 | NUR ---
RECEIVED PT BACK TO ROOM 2121. PT STILL DROWSY BUT EASILY AROUSES TO VOICE. VITAL SIGNS STABLE, PLACED PT ON FREQUENT VITAL SIGNS. RT GROIN DRESSING CDI, NO S/S OF BLEEDING OR HEMATOTMA. BEDSIDE RAILS X2, CALL LIGHT IN REACH, NAD NOTED, WILL CONTINUE TO MONITOR.
--- NOTE | 2020-01-28 17:17 | NUR ---
TONI LEUNG APRN, PT WANTING TO KNOW IF HE IS BEING D/C SINCE HIS HEART CATH WAS CLEAN.
--- NOTE | 2020-01-28 18:42 | NUR ---
PAGED XOCHITL RIVER APRN, WAITING JITTERBUG OPERATOR BACK.
--- NOTE | 2020-01-28 19:16 | NUR ---
PAGES OUT TO XOCHITL RIVER AND REILLY DEAN, TO SEE IF WE CAN OBTAIN DC ORDERS FOR PT WHO HAS BEEN TOLD BY CARDIOLOGY (DR YEUNG) THAT HE CAN GO HOME.
--- NOTE | 2020-01-28 19:37 | NUR ---
DR SKAGGS PAGED THROUGH ANSWERING SERVICE, NEITHER XOCHITL OR JUAN HAS RETURNED PAGES. ANSWERING SERVICE STATED THAT XOCHITL RIVER APN IS CARE ADVOCATE.
--- NOTE | 2020-01-28 19:47 | NUR ---
SPOKE WITH DR SKAGGS, ORDERS GIVEN THAT ITS OK TO SEND PT HOME.
--- NOTE | 2020-01-28 20:28 | NUR ---
DISCHARGE CHARGE INSTRUCTIONS GIVEN, IV TAKEN OUT, TELEMETRY RETURNED TO [place]. ESCORTED OUT VIA TO [facility].
--- NOTE | 2020-01-29 09:43 | MORECARE ---
CASE MANAGEMENT DISCHARGE SUMMARY PATIENT: ONDINA EWING UNIT: [id number] ADM DATE: 01/27/20 AGE: 69 : [birth year] SEX: M ROOM/BED: D.2122 AUTHOR: RAUL VIDALES PHYSICIAN: REFERRING PHYSICIAN: OTILIO MARTINEZ MD DATE OF SERVICE: 01/29/20 Discharge Plan Patient Name: [facility]NDINA EWING [facility] [facility] 1950 Planned Disposition: Home Anticipated Discharge Date: 01/28/20 Discharge Date: 01/28/2020 Expected LOS: 1 Initial Reviewer: [email or web address] Initial Review Date: 01/29/2020 Generated: 01/29/20 10:43 am Coverage Notice Reviewer: [email or web address] Jack Lutz Notice Issued Date-Time: 01/28/2020 8:18 Notice Type: Medicare Outpatient Observation Notice Notice Delivered To: Patient Relationship to Patient: Fuel Management Handler Name: Delivery Method: HAND - Hand Delivered Caren Days: Prior Verbal Notification: Recipient Understood Notice: Yes Recipient Signature: Yes Med Rec Note Co-signed by Attending: Coverage Notice Comment: Patient Name: ONDINA EWING Page [phone] at 0943 All edits/amendments must be made on the electronic document DICTATION DATE: 01/29/2043 OVERLAY OPERATOR: DIVYA 01/29/20 0943 RPT#: [id number] DC DATE:01/28/20 STATUS: DIS IN [facility] [address] [place] [address] END OF REPORT
== END 2020-01-28 20:30 | disposition home or self-care (01) ==
LOC: D.ER 10:40 → D.M2 13:05 → OBSVTIME 01-28 20:29 → D.M2 01-28 20:30
PROVIDERS: Family Medicine; Internal Medicine Cardiovascular Disease; ADMIT Internal Medicine Nephrology; ATTEND Internal Medicine Nephrology
DX: I21.4 Non-ST elevation (NSTEMI) myocardial infarction (principal); I25.110 Atherosclerotic heart disease of native coronary artery with unstable angina pectoris; N17.9 Acute kidney failure, unspecified; E78.5 Hyperlipidemia, unspecified; B20 Human immunodeficiency virus [HIV] disease; I10 Essential (primary) hypertension

== ENCOUNTER → 2020-04-01 09:20 | Outpatient (CLI) | payer MEDICARE ==
[2020-01-27 14:28] VITALS: BMI 22.2
[~2020-04-01 09:20] MED LIST changes: +BIKTARVY 50-201 EACH PO; +FLOMAX0.4 MG PO
--- NOTE | 2020-04-03 14:16 | EC ---
PATIENT:ONDINA EWING 3RD DATE OF SERVICE: 04/01/20 SEX: M MEDICAL RECORD: [id number] DATE OF : [birth year] LOCATION:D[facility] AGE OF PATIENT: 69 ADMISSION DATE: 04/01/20 REFERRING PHYSICIAN: INTERPRETING PHYSICIAN: PADMINI RAMOS MD ECHOCARDIOGRAM REPORT ECHO CHARGES 4 ECHO COMPLETE Date: 04/01/20 CLINICAL DIAGNOSIS: HTN HX OF CAD/MR/TR ECHOCARDIOGRAPHIC MEASUREMENTS (adult normal given) AC root (d.<3.7cm) 3.5 cm LV Septum d (<1.2 cm> 1.1 cm Valve Excursion 1.5 cm LV Septum (systole) 1.4 cm Left Atria (s.<4.0cm> 2.7 cm LVPW d(<1.2cm) 1.2 cm RV (d.<2.3cm) 3.1 cm LVPW (sytole) 14 cm LV diastole(<5.6CM) 3.7 cm MV E-F(>70mm/sec) cm LV systole 2.4 cm LVOT Diameter 2.0 cm MV exc.(>10mm) 1.0 cm Est.ejection fraction (50-75%) % DOPPLER: LVIT cm/sec A 93.0 cm/sec E 52.0 cm/sec LA cm/sec RVSP 25 mmHg LVOT 73 cm/sec AOP1/2T m/s Asc. Ao 173 cm/sec RVOT 98 cm/sec RA cm/sec PA 115 cm/sec AV Gradient Peak 4.57 mmHg AV Mean 2.38 mmHg AV Area 1.8 cm MV Gradient Peak 4.98 mmHg MV Mean 2.01 mmHg MV Area cm COMMENTS: Perianesthesia Rn: 2 NORA SPEAR Filing And Polishing Supervisor: 3 Dr. Lisa TAPE# PACS Pericardial Effusion N DATE OF SERVICE: Adequate 2D, color-flow imaging, spectral Doppler, and M-Mode. No LVH. LV internal dimension is normal. Wall motion is normal. EF is greater than or equal to 55%. Aortic valve is tricuspid. No evidence of stenosis by Doppler interrogation. Left atrium normal at 3.7 cm. Mitral valve shows no prolapse. Trace MR. Right-sided chambers are grossly normal. Mild TR. TRANSINT:[id number] Voice Confirmation ID: [id number] DOCUMENT ID: [id number] ECHOCARDIOGRAM REPORT [id number] ONDINA EWING. 3RD PADMINI RAMOS MD at 1416 CC: [id number] DICTATION DATE: 04/02/20844 DRY ROLLER: 04/02/20924 DEP CLI 04/01/20 [facility] [address] [place] [id number]
== END | disposition home or self-care (01) ==
LOC: D.HCCECHO 09:20
PROVIDERS: ATTEND Internal Medicine Interventional Cardiology
DX: I10 Essential (primary) hypertension (principal)

== ENCOUNTER 2020-08-27 06:20 | Day surgery (SDC) | payer MEDICARE ==
[2020-08-26 11:28] LABS: BASOPHILS 0.8 % (0-2); EOSINOPHILS 2.7 % (0-7); HEMATOCRIT 42.4 % (42.0-54.0); HEMOGLOBIN 14.4 g/dL (13.5-17.5); LYMPHOCYTES 32.2 % (15-50); MCH 32.7 pg (26.0-34.0); MCV 96.4 fL (80.0-100.0); MEAN PLATELET VOLUME 9.5 fL (7.4-10.4); MONOCYTES 9.5 % (2-11); NEUTROPHILS 54.8 % (40-80); PLATELET COUNT 162 10x3/uL (130-400); RDW 11.7 % (11.5-14.5); WBC 7.4 10x3/uL (4.8-10.8)
[2020-08-26 11:39] LABS: ANION GAP 10.4 mmol/L (8-16); CALCIUM 8.9 mg/dL (8.5-10.1); CARBON DIOXIDE 28.5 mmol/L (21.0-32.0); CREATININE - SERUM 1.9 mg/dL (0.6-1.3); POTASSIUM - SERUM 3.9 mmol/L (3.5-5.1)
[~2020-08-27] VITALS: Ht 170.2 cm; Wt 66.2 kg
[~2020-08-27 06:20] MED LIST changes: +GLUCOPHAGE500 MG PO; +LIPITOR20 MG PO
[2020-08-27 07:22] VITALS: BP 138/81; Ht 170.2 cm; Wt 66.2 kg
--- NOTE | 2020-08-27 08:40 | NUR ---
0830 DR. DUBRIN PHONED, PT. TOOK PLAVIX YESTERDAY, DR. DURBIN WANTS PT TO BE OFF PLAVIX FOR 10 DAYS THUS HE CANCELLED SURGERY. PT. INFORMED. IV DC'D. PT WILL GET HIS OWN APPT. WITH HIS PROGRAMMER ANALYST FOR APPROVAL TO BE OFF PLAVIX AND THEN WILL CALL TO RESCHEDULE FOR SURGERY.
== END 2020-08-27 08:45 | disposition home or self-care (01) ==
LOC: D.OPS 06:20 → D.PAN 08:00 → D.OPS 08:45
PROVIDERS: ATTEND Surgery
DX: R10.9 Unspecified abdominal pain (principal); K40.20 Bilateral inguinal hernia, without obstruction or gangrene, not specified as recurrent; I10 Essential (primary) hypertension; I25.2 Old myocardial infarction; B20 Human immunodeficiency virus [HIV] disease; Z53.8 Procedure and treatment not carried out for other reasons